=== PATIENT | male | born 1955 | race Caucasian/White ===

== ENCOUNTER 2016-07-16 07:38 | Day surgery (SDC) | payer OTHER ==
--- NOTE | ~2016-07-16 | EGD ---
EGD REPORT [facility] [address] [address] NAME: STEFAN GALDAMEZ : 55 STATUS : REG [facility] [place] PAT#: [id number] AGE: 61 ADM/REG DATE : 07/16/16 MR#: [id number] REPORT SERV DATE: 07/16/16 DICTATED BY: CARL LIN DATE: 07/16/16 REPORT STATUS : Draft TRANSCRIBED BY: [facility] DATE: 07/16/16 Endoscopy Center Patient Name: Stefan Galdamez Date of : 1955 Attending MD: CARL LIN MD Procedure Date No Time: 07/16/2016 Procedure: Upper GI endoscopy Indications: Portal hypertension with suspected esophageal varices; FUENTES cirrhosis; spleen 23cm; propranolol/omeprazole. Patient Profile: Informed consent was obtained from the patient by me prior to the procedure. Risks, benefits, and alternatives were discussed including the risk of bleeding, perforation, infection, reaction to medicine, missed lesion, and cardiopulmonary complications. Referring MD: SHU HOROWITZ Medicines: Monitored Anesthesia Care Complications: No immediate complications. Procedure: Pre-Anesthesia Assessment: - ASA Grade Assessment: III - A patient with severe systemic disease. After obtaining informed consent, the endoscope was passed under direct vision. Throughout the procedure, the patient's blood pressure, pulse, and oxygen saturations were monitored continuously. The GIF H190 [id number] was introduced through the mouth, and advanced to the second part of duodenum. The endoscope was withdrawn with careful examination all mucosal surfaces including retroflexion stomach. The upper GI endoscopy was accomplished without difficulty. The patient tolerated the procedure well. Findings: The examined duodenum was normal. Moderate portal hypertensive gastropathy was found in the entire stomach. No gastric varices. Grade I varices were found in the lower third of the esophagus with red whale bryson. Two bands were successfully placed with complete eradication, resulting in deflation of varices. Impression: - Normal examined duodenum. - Portal hypertensive gastropathy. - Grade I esophageal varices. Completely eradicated. Banded. Recommendation: - Patient has a contact number available for EGD REPORT [address] [address] NAME: STEFAN GALDAMEZ SILVER : 55 STATUS : REG [facility] [place] PAT#: [id number] AGE: 61 ADM/REG DATE : 07/16/16 MR#: [id number] REPORT SERV DATE: 07/16/16 DICTATED BY: CARL LIN DATE: 07/16/16 REPORT STATUS : Draft TRANSCRIBED BY: [employer] DATE: 07/16/16 emergencies. The signs and symptoms of potential delayed complications were discussed with the patient. Return to normal activities tomorrow. Written discharge instructions were provided to the patient. - Regular diet. - Continue present medications. - Liquid diet today, then soft diet few days. - Repeat EGD Mem AA 2 months. - F/u results Fe, TIBC, ferritin drawn today. Procedure Code(s): --- Professional --- 79296, Esophagogastroduodenoscopy, flexible, transoral; with band ligation of esophageal/gastric varices Diagnosis Code(s): --- Professional --- K76.6, Portal hypertension K31.89, Other diseases of stomach and duodenum I85.10, Secondary esophageal varices without bleeding CPT copyright 2013 [employer]. All rights reserved. The codes documented in this report are preliminary and upon yeast culture developer review may be revised to meet current compliance requirements. CARL LIN MD 07/16/2016 10:09 AM This report has been signed electronically. Number of Addenda: 0 Note Initiated On: 07/16/2016 9:42 AM Scope Withdrawal Time 0 hours 0 minutes 0 seconds [id number] [id number]
[~2016-07-16 07:38] MED LIST: COR20 PO; GLUCPH PO; I40 PO; IRON325 MG PO; LORT7 PO; NORCO1 TA1 PO; PR25 PO; PREV30 PO; PRILOSEC40 MG PO; PROZAC PO; SINEQUAN 50 MG50 MG PO; STERAPRED DS10 MG; Z100 PO; ZESTRIL10 MG PO; ZESTRIL20 MG PO
[2016-07-16 11:00] LABS: FERRITIN 9 NG/ML (26-388); IRON BINDING CAPACITY 417 MCG/DL (250-450); IRON, SERUM 22 MCG/DL (35-150)
== END 2016-07-16 23:59 | disposition home health service (06) ==
LOC: DMU 07:38
PROVIDERS: Internal Medicine Gastroenterology
PROC: 06L34CZ Occlusion of Esophageal Vein with Extraluminal Device, Percutaneous Endoscopic Approach (ICD-10-PCS; principal; 2016-07-16 09:00)
DX: I85.10 Secondary esophageal varices without bleeding (principal); K76.6 Portal hypertension; K31.89 Other diseases of stomach and duodenum; I10 Essential (primary) hypertension; K21.9 Gastro-esophageal reflux disease without esophagitis; K74.69 Other cirrhosis of liver
CPT/HCPCS: 82728; 82962; 83540; 83550

== ENCOUNTER 2016-09-24 07:43 | Day surgery (SDC) | payer OTHER ==
--- NOTE | ~2016-09-24 | EGD ---
EGD REPORT [facility] [address] [address] NAME: STEFAN GALDAMEZ : 55 STATUS : REG [facility] [place] PAT#: [id number] AGE: 61 ADM/REG DATE : 09/24/16 MR#: [id number] REPORT SERV DATE: 09/24/16 DICTATED BY: CARL LIN DATE: 09/24/16 REPORT STATUS : Draft [facility]: [facility] DATE: 09/24/16 Endoscopy Center Patient Name: Stefan Galdamez Date of : 1955 Attending MD: CARL LIN MD Procedure Date No Time: 09/24/2016 Procedure: Upper GI endoscopy Indications: Portal hypertension with suspected esophageal varices; FUENTES cirrhosis; spleen 23cm; propranolol/omeprazole. Patient Profile: Informed consent was obtained from the patient by me prior to the procedure. Risks, benefits, and alternatives were discussed including the risk of bleeding, perforation, infection, reaction to medicine, missed lesion, and cardiopulmonary complications. Referring MD: MARI CARTY Medicines: Monitored Anesthesia Care Complications: No immediate complications. Procedure: Pre-Anesthesia Assessment: - ASA Grade Assessment: III - A patient with severe systemic disease. After obtaining informed consent, the endoscope was passed under direct vision. Throughout the procedure, the patient's blood pressure, pulse, and oxygen saturations were monitored continuously. The GIF H190 [id number] was introduced through the mouth, and advanced to the third part of duodenum. The endoscope was withdrawn with careful examination all mucosal surfaces including retroflexion stomach. The upper GI endoscopy was accomplished without difficulty. The patient tolerated the procedure well. Findings: A single 7 mm sessile polyp with was found in the third part of the duodenum. The polyp was removed with a cold biopsy forceps. Resection and retrieval were complete. Patchy mildly erythematous mucosa was found in the first part of the duodenum and in the second part of the duodenum. Moderate portal hypertensive gastropathy was found in the entire examined stomach. No gastric varices. Grade I varices were found in the lower third of the esophagus, spasm as well; no stigmata. Ampulla abnormal, polypoid. Impression: - A single duodenal polyp. Resected and retrieved. - Erythematous duodenopathy. EGD REPORT [address] [address] NAME: STEFAN GALDAMEZ SILVER : 55 STATUS : REG [facility]#: [id number] AGE: 61 ADM/REG DATE : 09/24/16 MR#: [id number] REPORT SERV DATE: 09/24/16 DICTATED BY: CARL LIN DATE: 09/24/16 REPORT STATUS : Draft TRANSCRIBED BY: [employer] DATE: 09/24/16 - Portal hypertensive gastropathy. - Grade I esophageal varices. Recommendation: - Patient has a contact number available for emergencies. The signs and symptoms of potential delayed complications were discussed with the patient. Return to normal activities tomorrow. Written discharge instructions were provided to the patient. - Regular diet. - Continue present medications. - Await pathology results. - Schd EGD with sideviewer Dr. Tee to evaluate ampulla. Procedure Code(s): --- Professional --- 73706, Esophagogastroduodenoscopy, flexible, transoral; with biopsy, single or multiple Diagnosis Code(s): --- Professional --- K31.7, Polyp of stomach and duodenum K31.89, Other diseases of stomach and duodenum K76.6, Portal hypertension I85.10, Secondary esophageal varices without bleeding CPT copyright 2013 [employer]. All rights reserved. The codes documented in this report are preliminary and upon account installer review may be revised to meet current compliance requirements. CARL LIN MD 09/24/2016 10:45 AM This report has been signed electronically. Number of Addenda: 0 Note Initiated On: 09/24/2016 10:24 AM Scope Withdrawal Time 0 hours 0 minutes 0 seconds [address] [id number]
[2016-09-24 08:11] LABS: BASOPHILS 2.1 %; BASOPHILS ABSOLUTE 0.09 10/3/uL (0.0-0.16); EOSINOPHILS 4.5 %; EOSINOPHILS ABSOLUTE 0.19 10/3/uL (0.0-0.53); HEMATOCRIT 34.9 % (40.0-51.0); IMMATURE GRANULOCYTES 0.2 %; IMMATURE GRANULOCYTES ABSOLUTE 0.01 10/3/uL (0.0-0.11); LYMPHOCYTES ABSOLUTE 0.93 10/3/uL (0.67-4.30); MEAN CORPUS HGB CONC 28.7 g/dL (32.0-36.0); MEAN CORPUSCULAR HEMOGLOB 20.2 pg (26.0-34.0); MEAN CORPUSCULAR VOLUME 70.6 fL (80-100); MONOCYTES 7.1 %; NEUTROPHILS 64.1 %; NEUTROPHILS ABSOLUTE 2.71 10/3/uL (2.02-8.40); PLATELET COUNT 56 10/3/uL (150-400); RBC DISTRIBUTION WIDTH 21.2 % (12.0-16.0); RED CELL COUNT 4.94 10/6/uL (4.7-6.1); WHITE BLOOD CELLS 4.2 10/3/uL (4.5-10.5)
[2016-09-24 08:12] LABS: MANUAL DIFF NO %
[2016-09-24 08:20] LABS: ANISOCYTOSIS 1+ (5-10/OIF) (0-5/OIF); HYPOCHROMIA 3+ (>30/OIF) (0-2/OIF); PLATELET ESTIMATE DEC (ADEQUATE)
== END 2016-09-24 23:59 | disposition home health service (06) ==
LOC: DMU 07:43
PROVIDERS: Internal Medicine Gastroenterology
PROC: 0DB98ZX Excision of Duodenum, Via Natural or Artificial Opening Endoscopic, Diagnostic (ICD-10-PCS; principal; 2016-09-24 09:00)
DX: K29.80 Duodenitis without bleeding (principal); E11.9 Type 2 diabetes mellitus without complications; K31.7 Polyp of stomach and duodenum; K76.6 Portal hypertension; I10 Essential (primary) hypertension; I85.10 Secondary esophageal varices without bleeding; K74.60 Unspecified cirrhosis of liver; D69.6 Thrombocytopenia, unspecified; K21.9 Gastro-esophageal reflux disease without esophagitis; L40.9 Psoriasis, unspecified; F41.9 Anxiety disorder, unspecified; D64.9 Anemia, unspecified; Z98.890 Other specified postprocedural states; Z87.891 Personal history of nicotine dependence
CPT/HCPCS: 82962; 85025; 88305; J2370

== ENCOUNTER 2016-11-04 05:41 | Day surgery (SDC) | payer OTHER ==
--- NOTE | ~2016-11-04 | EGD ---
EGD REPORT [facility] [address] [address] NAME: STEFAN GALDAMEZ : 55 STATUS : REG [facility]#: [id number] AGE: 61 ADM/REG DATE : 11/04/16 MR#: [id number] REPORT SERV DATE: 11/04/16 DICTATED BY: STEFAN MUÑIZ DATE: 11/04/16 REPORT STATUS : Draft [facility]ANS[facility]ED BY: [facility] DATE: 11/04/16 Endoscopy Center Patient Name: Stefan Galdamez Date of : 1955 Attending MD: STEFAN MUÑIZ, Procedure Date No Time: 11/04/2016 Procedure: Upper GI endoscopy Indications: Follow-up of esophageal varices, Follow-up of duodenitis Referring MD: CARL HOROWITZ MD Medicines: Monitored Anesthesia Care Complications: No immediate complications. Estimated blood loss: None. Procedure: Pre-Anesthesia Assessment: - ASA Grade Assessment: IV - A patient with severe systemic disease that is a constant threat to life. After obtaining informed consent, the endoscope was passed under direct vision. Throughout the procedure, the patient's blood pressure, pulse, and oxygen saturations were monitored continuously. The GIF H190 [id number] was introduced through the mouth, and advanced to the second part of duodenum. The Duodenoscope was introduced through the mouth, and advanced to the second part of duodenum. The upper GI endoscopy was accomplished without difficulty. The patient tolerated the procedure well. Findings: Grade I varices were found in the lower third of the esophagus. Severe portal hypertensive gastropathy was found in the entire examined stomach. The cardia and gastric fundus were normal on retroflexion. Patchy granular mucosa was found in the area of the papilla. Biopsies were taken with a cold forceps for histology. Verification of patient identification for the specimen was done. Estimated blood loss was minimal. The exam of the duodenum was otherwise normal. Impression: - Grade I esophageal varices. - Portal hypertensive gastropathy. - Granular mucosa in the area of the papilla. Biopsied. Recommendation: - Patient has a contact number available for emergencies. The signs and symptoms of potential delayed complications were discussed with the patient. Return to normal activities tomorrow. Written discharge instructions were provided to the patient. EGD REPORT [place] [id number] [place]. [address] NAME: STEFAN GALDAMEZ Bhupendra : 55 STATUS : REG [facility]#: [id number] AGE: 61 ADM/REG DATE : 11/04/16 MR#: [id number] REPORT SERV DATE: 11/04/16 DICTATED BY: STEFAN MUÑIZ DATE: 11/04/16 REPORT STATUS : Draft TRANSCRIBED BY: [employer] DATE: 11/04/16 - Return to previous diet. - Continue present medications. - Await pathology results. - Return to referring physician. Procedure Code(s): --- Professional --- 50216, Esophagogastroduodenoscopy, flexible, transoral; with biopsy, single or multiple Diagnosis Code(s): --- Professional --- I85.00, Esophageal varices without bleeding K76.6, Portal hypertension K31.89, Other diseases of stomach and duodenum K31.9, Disease of stomach and duodenum, unspecified K29.80, Duodenitis without bleeding CPT copyright 2013 [employer]. All rights reserved. The codes documented in this report are preliminary and upon auto damage appraiser review may be revised to meet current compliance requirements. STEFAN MUÑIZ, 11/04/2016 7:25 AM Number of Addenda: 0 Note Initiated On: 11/04/2016 6:56 AM Scope Withdrawal Time 0 hours 0 minutes 0 seconds [address] [id number]
--- NOTE | ~2016-11-04 | EGD ---
EGD REPORT [facility] [address] [address] NAME: STEFAN GALDAMEZ : 55 STATUS : [facility]#: [id number] AGE: 61 ADM/REG DATE : 11/04/16 MR#: [id number] REPORT SERV DATE: 11/07/16 DICTATED BY: STEFAN MUÑIZ DATE: 11/07/16 REPORT STATUS : Draft [facility] DATE: 11/07/16 Endoscopy Center Patient Name: Stefan Galdamez Date of : 1955 Attending MD: STEFAN MUÑIZ, Procedure Date No Time: 11/04/2016 Procedure: Upper GI endoscopy Indications: Follow-up of esophageal varices, Follow-up of duodenitis Referring MD: CARL HOROWITZ MD Medicines: Monitored Anesthesia Care Complications: No immediate complications. Estimated blood loss: None. Procedure: Pre-Anesthesia Assessment: - ASA Grade Assessment: IV - A patient with severe systemic disease that is a constant threat to life. After obtaining informed consent, the endoscope was passed under direct vision. Throughout the procedure, the patient's blood pressure, pulse, and oxygen saturations were monitored continuously. The GIF H190 [id number] was introduced through the mouth, and advanced to the second part of duodenum. The Duodenoscope was introduced through the mouth, and advanced to the second part of duodenum. The upper GI endoscopy was accomplished without difficulty. The patient tolerated the procedure well. Findings: Grade I varices were found in the lower third of the esophagus. Severe portal hypertensive gastropathy was found in the entire examined stomach. The cardia and gastric fundus were normal on retroflexion. Patchy granular mucosa was found in the area of the papilla. Biopsies were taken with a cold forceps for histology. Verification of patient identification for the specimen was done. Estimated blood loss was minimal. The exam of the duodenum was otherwise normal. Impression: - Grade I esophageal varices. - Portal hypertensive gastropathy. - Granular mucosa in the area of the papilla. Biopsied. Recommendation: - Patient has a contact number available for emergencies. The signs and symptoms of potential delayed complications were discussed with the patient. Return to normal activities tomorrow. Written discharge instructions were provided to the patient. EGD REPORT [place] [address] [place]. [address] NAME: TERASTEFAN DAVIS Bhupendra : 55 STATUS : [facility]#: [id number] AGE: 61 ADM/REG DATE : 11/04/16 MR#: [id number] REPORT SERV DATE: 11/07/16 DICTATED BY: STEFAN MUÑIZ DATE: 11/07/16 REPORT STATUS : Draft TRANSCRIBED BY: [employer] DATE: 11/07/16 - Return to previous diet. - Continue present medications. - Await pathology results. - Return to referring physician. Procedure Code(s): --- Professional --- 70740, Esophagogastroduodenoscopy, flexible, transoral; with biopsy, single or multiple Diagnosis Code(s): --- Professional --- I85.00, Esophageal varices without bleeding K76.6, Portal hypertension K31.89, Other diseases of stomach and duodenum K31.9, Disease of stomach and duodenum, unspecified K29.80, Duodenitis without bleeding CPT copyright 2013 [employer]. All rights reserved. The codes documented in this report are preliminary and upon thread pulling machine attendant review may be revised to meet current compliance requirements. STEFAN MUÑIZ, 11/04/2016 7:25 AM Number of Addenda: 0 Note Initiated On: 11/04/2016 6:56 AM Scope Withdrawal Time 0 hours 0 minutes 0 seconds [address] [id number]
== END 2016-11-04 23:59 | disposition home or self-care (01) ==
LOC: DMU 05:41
PROVIDERS: Internal Medicine Gastroenterology
PROC: 0DB98ZX Excision of Duodenum, Via Natural or Artificial Opening Endoscopic, Diagnostic (ICD-10-PCS; principal; 2016-11-04 07:00)
DX: I85.00 Esophageal varices without bleeding (principal); K31.89 Other diseases of stomach and duodenum; K21.9 Gastro-esophageal reflux disease without esophagitis; M10.9 Gout, unspecified; F41.9 Anxiety disorder, unspecified; D64.9 Anemia, unspecified; I10 Essential (primary) hypertension; Z79.899 Other long term (current) drug therapy; Z98.890 Other specified postprocedural states
CPT/HCPCS: 82962; 88305